=== PATIENT | male | born 1960 | race Caucasian/White ===

== ENCOUNTER → 2017-05-01 | Outpatient (CLI) | payer BC ==
[~2017-05-01] MED LIST: ASPI325T4 PO; EFFSR150 PO; HYDR-5688 PO
== END | disposition home or self-care (01) ==
LOC: C.RDSM 13:15
PROVIDERS: ATTEND Physical Medicine & Rehabilitation Sports Medicine
DX: M79.672 Pain in left foot (principal)

== ENCOUNTER → 2017-05-11 | Outpatient (CLI) | payer BC ==
--- NOTE | 2017-05-11 14:10 | DIAGNOSTIC IMAGING REPORT ---
MRI OF THE LEFT FOREFOOT WITHOUT IV CONTRAST: CLINICAL HISTORY: Toe lesion. COMPARISON STUDY: Radiographs of the left first toe dated 05/01/2017. TECHNIQUE: MRI of the left forefoot is performed utilizing various T1 and T2-weighted sequences in the axial, sagittal, and coronal planes. IV contrast was not administered for this examination. FINDINGS: There is minimal arthritic change seen at the first tarsometatarsal joint. Normal marrow signal intensity is otherwise preserved throughout the regional bony structures. There is no MRI evidence of fracture or osteonecrosis in the forefoot. The joint spaces appear preserved. The regional musculature is normal in morphology and signal intensity. There is a multiloculated T1 hypointense, T2 hyperintense cystic lesion identified predominantly along the dorsal aspect of the first proximal phalanx. This measures 2.4 x 1.3 x 1.3 cm. A small loculation extends along the underside of the toe, and this may communicate with the first interphalangeal joint. The appearance is most typical for a ganglion cyst. There is no significant surrounding inflammation. There are least two additional similar-appearing lesions. A 2.1 cm lesion is identified on the plantar aspect of the first metatarsal around the flexor tendon as seen on sagittal image 7, and a lesion is partially visualized in the distal tarsal row at the level of the first and second toes measuring at least 11 mm. IMPRESSION: 1. No acute bony abnormality is identified in the left forefoot. 2. A multiloculated simple appearing cystic lesion located predominantly along the dorsal aspect of the first proximal phalanx is typical in appearance for a ganglion cyst. 3. At least two additional similar-appearing ganglion cysts are identified around a flexor tendon along the plantar aspect of the first metatarsal and in the distal tarsal row. Dictated: 05/11/2017 12:07 PM Transcribed: 05/11/2017 2:09 PM Rene Electronically signed by: Jeet Singh M.D. 05/11/2017 2:16 PM Dictated Date/Time: 05/11/2017 12:07 PM
== END | disposition home or self-care (01) ==
LOC: C.MRI 10:22
PROVIDERS: ATTEND Physical Medicine & Rehabilitation Sports Medicine
DX: M79.89 Other specified soft tissue disorders (principal); M54.16 Radiculopathy, lumbar region; M67.472 Ganglion, left ankle and foot

== ENCOUNTER → 2017-06-11 | Day surgery (SDC) | payer BC ==
[2017-05-21 10:36] VITALS: Ht 177.8 cm; Wt 100.0 kg
[~2017-06-11] VITALS: Ht 177.8 cm; Wt 100.0 kg
[~2017-06-11] MED LIST changes: -ASPI325T4 PO; +ATROPINE SULFATE 0.1 MG/ML 5ML SYR IV PRN; +BUPIVACAINE 0.5 % 5 MG/1 ML MPF 30ML VIAL ONE; +BUPIVACAINE/EPINEPHRINE 0.5% MPF 1:200,000 10 ML VIAL ONE; +CEFAZOLIN 2000 MG/60 ML D5W IV SCH; +DEXAMETHASONE SOD INJ 4 MG/ML VIAL ONE; +EpHEDrine SULFATE 50MG/5ML SYR ONE; +EpHEDrine SULFATE INJ 50 MG/ML AMP IV PRN; +FENTANYL CITRATE INJ 50 MCG/1 ML 2 ML VIAL IV PRN; +FENTANYL CITRATE INJ 50 MCG/1 ML 2 ML VIAL ONE; +HYDROCODONE/ACETAMOPHEN 5/325MG TAB PO PRN; +LACTATED RINGER'S 1000ML 1,000 ML IV SCH; +LIDOCAINE HCL 2% 2 ML VIAL (20MG/ML) ONE; +MIDAZOLAM HCL 1 MG/ML 2ML VIAL ONE; +MoRPHine SULFATE 2 MG/ML CARP IV PRN; +MoRPHine SULFATE 4 MG/ML 1 ML CARP\\VIAL IV PRN; +ONDANSETRON INJ 2 MG/ML 2 ML VIAL IV PRN; +ONDANSETRON INJ 2 MG/ML 2 ML VIAL ONE; +PROMETHAZINE HCL INJ 6.25 MG in SODIUM CHLORIDE 0.9% 50ML 50 ML IV PRN; +PROPOFOL IV EMULSION 10 MG/ML 20 ML VIAL IV ONE; +SODIUM CHLORIDE 0.9% 1000ML 1,000 ML IV SCH; +SODIUM CHLORIDE 0.9% INJ 10 ML VIAL ONE
--- NOTE | 2017-06-11 06:46 | History & Physical Bridge Note ---
H&P Re-Evaluation Bridge Note: I have examined the patient, reviewed the History & Physical and in the interval since the performance of the History & Physical I have noted the following changes of clinical significance: No changes noted
--- NOTE | 2017-06-11 08:35 | Discharge Instructions-SurgCtr ---
Discharge Instructions Date of Service Jun 11, 2017. Visit Reason for Visit: Left Foot Ganglion Cyst Discharge Discharge Diagnosis / Problem: left foot ganglion cyst Discharge Goals Goal(s): Decrease discomfort, Improve function, Improve disease control Activity Recommendations Activity Limitations: per Instructions/Follow-up section Weightbearing Status: Left weightbearing (as tolerated) Anesthesia . Post Anesthesia Instructions: If you have had General Anesthesia or IV Sedation: * Do not drive today. * Resume driving when surgeon permits. * Do not make important decisions or sign legal documents today. * Call surgeon for: 1. Temperature elevations greater than 101 degrees F. 2. Uncontrollable pain. 3. Excessive bleeding. 4. Persistent nausea and vomiting. 5. Medication intolerance (nausea, vomiting or rash). * For nausea and vomiting use only clear liquids such as: tea, soda, bouillon until nausea subsides, then gradually increase diet as tolerated. * If you have any concerns or questions, call your surgeon's office. If physician is unavailable and it is an emergency, call 911 or go to the nearest emergency room. . Instructions / Follow-Up Instructions / Follow-Up DIET: * Resume previous diet. MEDICATIONS: * Please take your prescriptions as instructed at your pre-op appointment and/ or see medication discharge instructions listed above. * If concerns develop, call your physician's office at . SPECIAL CARE INSTRUCTIONS: * Ice to left foot as needed for pain/swelling. * Elevate left foot as needed for swelling * Keep dressing clean, dry, intact. Keep on at all times. * Wear post op shoe when out of bed. * Okay to wiggle toes as tolerated. * You may place weight on your left foot as tolerated with post op shoe on left foot. * Your surgical extremity may be discolored due to prepping agents used on the skin. A bluish-green tint is a normal variant and should not cause alarm. Call your doctor at [phone] if: * Temperature above 101 degrees * Pain not relieved by pain medicine ordered * There is increased drainage or redness from any incision * You have any unanswered questions, problems or concerns. FOLLOW UP VISIT: * If not already scheduled, please call the office at to schedule a follow-up appointment. * You have a follow up appointment with Kiley Falcon PA-C on 06/15/17 at 10:00 a.m. * You have a follow up appointment with Dr. Benson on 06/24/17 at 12:00 p.m. Diet Recommendations Home Diet: no limitations, resume previous diet Procedures Procedures Performed: Excision of Left great toe ganglion cyst Pending Studies Studies pending at discharge: no Medical Emergencies . Who to Call and When: Medical Emergencies: If at any time you feel your situation is an emergency, please call 911 immediately. . Non-Emergent Contact Non-Emergency issues call your: Surgeon Call Non-Emergent contact if: temperature is above 101, wound has increased drainage, wound has increased redness, wound has increased pain, you have any medication questions . . "Provider Documentation" section prepared by Spring Falcon. . [place] Drug Monitoring Program Search Results: patient reviewed within database, no issues identified
--- NOTE | 2017-06-11 08:38 | [facility] Operative Report ---
Operative Report Operative Date Jun 11, 2017. Pre-Operative Diagnosis Left foot ganglion cyst Post-Operative Diagnosis same as preop Procedure(s) Performed Excision of Left great toe ganglion cyst Surgeon Dr. Delacruz Testing Engineer Surgeon(s) LIANA Lomax, simi wynn Estimated Blood Loss 5ml Findings Ganglion cyst of the right great toe Specimens A: ganglion cyst, left great toe Drains none Anesthesia laryngeal mask with popliteal block Complication(s) None Disposition Recovery Room / PACU Implants None Indications Patient's a 57-year-old male with a symptomatic ganglion cyst of the left great toe. This is confirmed clinically by prior history and MRI. The cyst appears to be predominately on the dorsal aspect may have a communication to the flexor sheath plantarly. Treatment options risks and benefits were discussed. He elected to proceed with surgical excision. I personally obtained informed consent. Description of Procedure Patient identified as Axel Gtuiérrez. He identified the operative site as the left big toe. I marked with my initials. Preoperative surgical timeout was performed. Preoperative dose of antibiotics was given. DVT prophylaxis was not indicated and we'll order will be done with early mobility. He was positioned supine on the operating room table tourniquet was applied to fingerbreadths distal to the fibular neck on the left calf. The left lower extremity is prepped and draped in the usual sterile fashion. The cyst was 2-3 cm along and 1-1/2 cm wide located on the dorsal lateral aspect of the proximal phalanx left great toe. A laryngeal mask anesthetic and a popliteal block were house calls nurse practitioner by the anesthesiologist. The limb was exsanguinated with the Esmarch tourniquet inflated 250 mmHg. A dorsal longitudinal incision was made just lateral to midline. This incision was about 3 status to 4 cm in length. Immediately upon incising the dermal layer the cyst was identified. The cyst was dissected out laterally and medially. Laterally there were fairly dense adhesions to the skin which were carefully dissected out. The cyst was complex. There were septations. The cyst was adherent to the extensor hallucis longus tendon but was easily dissected from it. No satellites were noted. Careful dissection was performed distally and laterally due to the adhesions. Some small vessels were identified and coagulated. It is possible that there were some small nerve branches which may have become intertwined within the cyst and were sacrificed during the procedure. The cyst was ruptured during the procedure and was controlled with an Allis clamp. The cyst was dissected plantar lead towards the midline. Blunt dissection was utilized clearing away the normal structures from the cyst. At this time the plantar lateral neurovascular structures were identified and carefully dissected out and preserved. The cyst was noted to course more plantar to the neurovascular structures. The cyst was amputated dorsally leaving the stock plantarly. I then made a oblique incision overlying the proximal phalanx on its plantar aspect. Localization was performed by placing a [place] through the dorsal wound to the level where the stalk was located. Blunt dissection was performed in the midline and down to the level of the flexor tendon sheath. The remnant of the stock was then identified as best as possible and dissected down to the plantar lateral aspect of the flexor sheath where it was excised with a small 3- 4 mm diameter area of flexor sheath. The flexor sheath itself was not compromised in order to prevent bowstringing. No satellite lesions were noted. No cysts were noted along the visualized several centimeter portion of the flexor sheath. The tendon itself appeared to be normal and was identified by movement of the interphalangeal joint of the toe. The neurovascular bundle laterally was identified preserved and protected. The tourniquet was let down after approximate 40 minutes of inflation. There was no significant bleeding. Irrigation was performed. The toe pinked up nicely and had capillary refill 2-3 seconds. Leading was controlled with pressure. The skin was closed with 4-0 nylon using interrupted horizontal mattress stitches a soft sterile dressing was applied along with a toe wrap and a postop shoe. Patient was awakened from anesthesia without difficulty taken to the recovery room in stable condition. There were no complications. Blood loss was approximate 5 mL. The resected ganglion cyst was sent for specimen. Counts were correct at the end of the case. I spoke the patient's informed her my findings gave detailed postoperative instructions. He should be partial weightbearing with his postop shoe for the next several days. He can then weight-bear as tolerated but should focus on elevation and rest. I attest to the content of the Intraoperative Record and any orders documented therein. Any exceptions are noted below.
--- NOTE | 2017-06-11 08:40 | [facility] Operative Report ---
Operative Report Operative Date Jun 11, 2017. Pre-Operative Diagnosis Left foot ganglion cyst Post-Operative Diagnosis same as preop Procedure(s) Performed Excision of Left great toe ganglion cyst Surgeon Dr. Delacruz Horse Farm Manager Surgeon(s) Spring Falcon PA-C, Dr. Nagi Amado Estimated Blood Loss 5ml Findings ganglion cyst left big toe Specimens A: ganglion cyst, left great toe Drains None Anesthesia General with peripheral block Complication(s) None Disposition Recovery Room / PACU (stable) Indications Patient is a 57 year old male with complaints of cyst left foot, increasing in size over the last few months. Bothers him daily with shoes and ambulating. He wished to have it removed. X-rays/MRI obtained, found to have ganglion cyst left great toe. Surgical intervention discussed, risks/complications discussed , informed consent obtained. Description of Procedure Patient was taken to the operating room, placed under general anesthesia, given peripheral nerve block. He was given IV Ancef for surgical prophylaxis. Time out performed, prepped and draped in routine sterile fashion. I was present the entire case, please see Dr. Benson's operative report for further detail. Patient was awakened and taken to the recovery room in stable condition. I attest to the content of the Intraoperative Record and any orders documented therein. Any exceptions are noted below.
[2017-06-11 09:19] VITALS: BP 128/72; PULSE 65; TEMP 36.3; O2SAT 94
--- NOTE | 2017-06-11 09:59 | Anesthesiology Progress Note ---
Anesthesia Post Op Note Date & Time Jun 11, 2017 at 09:58 Vital Signs Pain Intensity: 0 Vital Signs Past 12 Hours Date Time Temp Pulse Resp B/P (MAP) Pulse Ox O2 Delivery O2 Flow Rate FiO2 06/11/17 09:19 36.3 65 128/72 (90) 94 Room Air 06/11/17 09:10 36.4 76 16 123/76 98 Room Air 06/11/17 09:06 74 14 132/84 100 06/11/17 09:06 72 14 06/11/17 09:06 72 14 06/11/17 09:06 74 14 132/84 100 06/11/17 09:01 71 13 06/11/17 09:01 72 13 118/73 92 06/11/17 09:01 72 13 118/73 92 06/11/17 09:01 71 13 06/11/17 08:56 75 17 06/11/17 08:56 75 17 06/11/17 08:56 75 17 132/76 95 06/11/17 08:56 75 17 132/76 95 06/11/17 08:51 75 16 06/11/17 08:51 77 16 130/76 95 06/11/17 08:51 75 16 06/11/17 08:51 77 16 130/76 95 06/11/17 08:46 64 17 06/11/17 08:46 64 17 130/71 98 06/11/17 08:46 64 17 130/71 98 06/11/17 08:46 64 17 06/11/17 08:41 64 16 06/11/17 08:41 64 16 06/11/17 08:41 62 16 127/75 99 06/11/17 08:41 62 16 127/75 99 06/11/17 08:36 62 17 06/11/17 08:36 61 17 136/73 99 06/11/17 08:36 62 17 06/11/17 08:36 61 17 136/73 99 06/11/17 08:35 63 17 99 06/11/17 08:35 64 17 06/11/17 08:31 119/72 06/11/17 08:30 77 06/11/17 08:30 77 131/74 97 06/11/17 08:29 36.4 72 16 131/74 94 Mask 5 06/11/17 07:05 18 06/11/17 07:04 65 18 97 06/11/17 07:04 65 06/11/17 07:03 64 06/11/17 07:03 65 13 97 06/11/17 07:02 104/67 06/11/17 07:00 61 06/11/17 07:00 61 22 94 06/11/17 06:59 132/84 06/11/17 06:58 61 06/11/17 06:58 60 95 06/11/17 06:53 61 06/11/17 06:48 58 06/11/17 06:26 36.9 64 18 134/75 (94) 97 Room Air Notes Mental Status: alert / awake / arousable, participated in evaluation Pt Amnestic to Procedure: Yes Nausea / Vomiting: adequately controlled Pain: adequately controlled Airway Patency, RR, SpO2: stable & adequate BP & HR: stable & adequate Hydration State: stable & adequate Anesthetic Complications: no major complications apparent Block working well in pacu
== END | disposition home or self-care (01) ==
LOC: X.SURG 06:17
PROVIDERS: ATTEND Physical Medicine & Rehabilitation Sports Medicine
DX: M67.472 Ganglion, left ankle and foot (principal); M19.90 Unspecified osteoarthritis, unspecified site; F41.9 Anxiety disorder, unspecified; M48.02 Spinal stenosis, cervical region; Z98.52 Vasectomy status; Z86.79 Personal history of other diseases of the circulatory system

== ENCOUNTER 2019-06-10 06:21 | Inpatient (IN) ==
--- NOTE | 2019-05-02 09:46 | PAT Medication Instructions ---
Medication Instructions Date of Service May 02, 2019 Home Medications venlafaxine [Effexor XR] 150 mg PO QAM Take morning of surgery With a small sip of water, OTHERWISE NOTHING TO EAT OR DRINK AFTER MIDNIGHT: venlafaxine [Effexor XR] 150 mg PO QAM Other Notes If you have any questions please call us at [phone] or [phone] or [phone] or [phone]
--- NOTE | 2019-05-02 09:58 | Anesthesiology Consultation ---
Date of Service May 02, 2019 Assessment & Plan (1) Encounter for pre-operative examination: Chart Review Chart Review: Acceptable Risk for Surgery and Patient seen in Pre Admission Testing Teaching & Discussion Instructed NPO after midnight before surgery, except medications with 15 cc of water. Medication instructions provided according to the PAT guidelines. History Surgery Operation Date: 06/10/19 08:50 Proposed Procedures p Left Total Knee Replacement - Julián Whitlock MD Height/Weight Height: 5 ft 10 in Weight: 100.8 kg Allergies Allergy/AdvReac Type Severity Reaction Status Date / Time Sulfa (Sulfonamide Allergy Unknown RASH Verified 04/26/19 08:03 Antibiotics) Medications Home Medications Medication Instructions Recorded Confirmed Last Taken venlafaxine [Effexor XR] 150 mg PO QAM 04/26/19 04/26/19 Unknown Past Medical History Medical History Anxiety Atrial fibrillation HX 19 YRS AGO-ONLY EPISODE NO MEDS Depression Obesity Osteoarthritis Snoring Remote h/o sleep study, pt reports was inconclusive. Spinal stenosis of cervical region NO SURGERY Exercise / Class Metabolic Activity II 4-5 Yardwork/Stairs/Walk up hill (Denies CP or SOB with 1 FOS, does daily) Past Surgical History Surgical History H/O arthroscopy of knee H/O lumbosacral spine surgery spinal cyst removed H/O vasectomy History of cardiac cath 19 YRS AGO NO STENTS[facility] [place] History of colonoscopy History of herniorrhaphy Past Anesthesia History No Hx of Anesthesia Complications and No Family Hx of Anesthesia Complications History of PONV No Hx of PONV and No Hx of Motion Sickness Social History Smoking Status: Never smoker Do You Dip or Chew Tobacco: No (QUIT 20+ YRS AGO) Hx Alcohol Use: Yes Alcohol type: beer alcohol intake frequency: 0-2 drinks per day (1-2/day) Hx Substance Use: No substance use type: does not use Review of Systems Pt denies any recent chest pain, shortness of breath, palpitations, cough, fever or URI. Physical Exam Vital Signs BP: 138/84 P: 60bpm SPO2: 95% RA T: 97.7 F R: 12 ENMT Mouth: no dental restorations, no chipped teeth and no loose teeth Thyromental Distance: > or= 3.5 Finger Breadths (3.5) Mallampati Class: I Neck normal visual inspection and + facial hair (short trimmed yusuf); neck extension not limited Respiratory normal respiratory effort Auscultation: lungs clear to auscultation bilaterally Cardiovascular Rate/Rhythm: regular rate and regular rhythm Heart Sounds: no murmur Vessels: no carotid bruit Extremities: no edema Testing Laboratory Results 05/02/19 10:09 05/02/19 10:09 05/02/19 05/02/19 10:09 10:09 PT 10.1 INR 1.0 APTT 28.8 Blood Type AB Negative Antibody Screen NEGATIVE Electrocardiogram Date: 05/02/19 Findings: + SB @ (56) No significant change from 05/19/16. Chest X-Ray Date: 05/02/19 Findings: + NAD
--- NOTE | 2019-05-02 10:32 | XRay Report ---
XR chest Pre-admission PA/Lat CLINICAL HISTORY: 59 years-old Male presenting with pre-operative evaluation. TECHNIQUE: PA and lateral views of the chest were obtained. COMPARISON: 03/20/2015. FINDINGS: Cardiomediastinal silhouette normal. Lungs and pleural spaces clear. Degenerative changes of the thor acic spine. Upper abdomen normal. IMPRESSION: 1. No acute cardiopulmonary disease. Electronically signed by: Adria Nicholas M.D. 05/02/2019 10:30 AM
[2019-05-02 11:42] LABS: Basophils # (auto) 0.04 K/uL (0-0.2); Basophils % (auto) 0.6 %; Hematocrit (blood only) 41.4 % (42-52); Hemoglobin 14.9 g/dL (14.0-18.0); Immature Granulocytes # (auto) 0.02 K/uL (0.00-0.02); Immature Granulocytes % (auto) 0.3 %; Lymphocytes # (auto) 1.51 K/uL (1.2-3.4); Lymphocytes % (auto) 22.1 %; Mean Corpuscular Volume 83.8 fL (80-100); Mean Platelet Volume 9.5 fL (7.4-10.4); Monocytes # (auto) 0.57 K/uL (0.11-0.59); Monocytes % (auto) 8.3 %; Neutrophils # (auto) 4.69 K/uL (1.4-6.5); Neutrophils % (auto) 68.7 %; Platelet Count 212 K/uL (130-400); RDW Coefficient of Variation 13.4 % (11.5-14.5); RDW Standard Deviation 40.4 fL (36.4-46.3); Red Blood Count 4.94 M/uL (4.7-6.1); White Blood Count 6.83 K/uL (4.8-10.8)
[2019-05-02 11:52] LABS: Partial Thromboplastin Ratio 1.1; Partial Thromboplastin Time 28.8 Seconds (21.0-31.0); Prothrombin Time 10.1 Seconds (9.0-12.0)
[2019-05-02 12:27] LABS: Calcium 8.8 mg/dl (8.5-10.1); Creatinine Clr Calc Pharmacy 110.2 ml/min; Est GFR (African American) 110.5; Est GFR (Non-African American) 95.4; Potassium 4.3 mmol/L (3.5-5.1)
--- NOTE | 2019-06-03 21:12 | History and Physical Report ---
DATE OF ADMISSION: 06/10/2019 CHIEF COMPLAINT: Left knee pain and discomfort. HISTORY OF PRESENT ILLNESS: A 59-year-old gentleman who presents for surgical treatment of his left knee. He has a 3+ year history of increasing left knee pain and discomfort that has gradually gotten worse over time. He used to be an avid runner and ran marathons, but has not been able to run for years. He has been treated by Dr. Benson in the past, had his left knee scoped about 4 years or so ago and then some intermittent aspirations and injections since then, which have not been very successful. He describes global pain in his knee. He describes stiffness and discomfort. He has good and bad days, but more and more bad days. He would like to proceed with surgical treatment. PAST MEDICAL HISTORY: Significant for: 1. Atrial fibrillation in his 30s, but off all medicines and apparently in sinus rhythm. 2. Anxiety, on Effexor. 3. Mild obesity with BMI of 32. 4. Low back pain. PAST SURGICAL HISTORY: Includes: 1. Vasectomy. 2. Umbilical hernia repair. 3. Cyst removal from the spine. 4. Left knee arthroscopy done by Dr. Benson 4 years ago. ALLERGIES: SULFA. CURRENT MEDICATIONS: Effexor 150 mg a day. SOCIAL HISTORY: A 59-year-old male. He is . One drink per day. Chews tobacco. FAMILY HISTORY: Significant for heart disease and prostate cancer. REVIEW OF HISTORY: Negative for diabetes, neurologic problems, vascular problems, bleeding disorders. No chest pain or shortness of breath. No history of DVT or PE. PHYSICAL EXAMINATION: GENERAL: Reveals a healthy, pleasant middle-aged male. Looks to be in good health. HEENT: Benign. NECK: Supple, no lymphadenopathy. LUNGS: Clear to auscultation. HEART: Regular rate and rhythm. ABDOMEN: Soft, nontender, nondistended. EXTREMITIES: Grossly neurovascularly intact except as follows: Examination of left knee reveals patient ambulates independently. He does limp a little bit on this left side. He has got a small knee effusion. He has got varus alignment to his knee. With weightbearing, he does have a varus thrust. There is no gross instability. Range of motion is 5 degrees short of full extension to 125 degrees of flexion. No pain with hip motion. X-RAYS: X-rays of the left knee were reviewed. It shows advanced left knee tricompartment DJD. He has got a little bit of tibial femoral subluxation, but he has got complete loss of his medial joint space on the 40-degree flexion films. ASSESSMENT: A 59-year-old white male, previous runner with advanced left knee tricompartment degenerative joint disease. He has a history of knee arthroscopy in the past with minimal relief. He has failed conservative treatment and would like to have his left knee replaced. PLAN: We will take him to the operating room and do a left total knee replacement. The risks and benefits of this procedure were explained to the patient and include but not limited to DVT, PE, , infection, neurological injury, vascular injury, bleeding problem, pain, limited range of motion, stiffness, failure to relieve symptoms, incomplete relief of symptoms, need for further surgery in the future, fracture, leg length inequality, nerve palsy, and need for revision surgery. The patient understands and desires to proceed. Informed consent was obtained. As far as discharge plans, he is planning to be discharged to home using the [facility] home health program.
[~2019-06-10 06:21] MED LIST changes: +ACETAMINOPHEN 500 MG TAB PO SCH; -ATROPINE SULFATE 0.1 MG/ML 5ML SYR IV PRN; -BUPIVACAINE 0.5 % 5 MG/1 ML MPF 30ML VIAL ONE; +BUPIVACAINE LIPOSOME/PF 266 MG, BUPIVACAINE/EPINEPHRINE 50 ML, SODIUM CHLORIDE 0.9% 30 ... INFIL SCH; -BUPIVACAINE/EPINEPHRINE 0.5% MPF 1:200,000 10 ML VIAL ONE; -CEFAZOLIN 2000 MG/60 ML D5W IV SCH; +CEFAZOLIN 2000MG 2,000 MG/15 ML SYR IV SCH; -DEXAMETHASONE SOD INJ 4 MG/ML VIAL ONE; -EFFSR150 PO; -EpHEDrine SULFATE 50MG/5ML SYR ONE; -EpHEDrine SULFATE INJ 50 MG/ML AMP IV PRN; +FAMOTIDINE 20 MG TAB PO SCH; -FENTANYL CITRATE INJ 50 MCG/1 ML 2 ML VIAL IV PRN; -FENTANYL CITRATE INJ 50 MCG/1 ML 2 ML VIAL ONE; +GABAPENTIN 300 MG CAP PO SCH; -HYDR-5688 PO; -HYDROCODONE/ACETAMOPHEN 5/325MG TAB PO PRN; -LACTATED RINGER'S 1000ML 1,000 ML IV SCH; -LIDOCAINE HCL 2% 2 ML VIAL (20MG/ML) ONE; +LR 500ML BOLUS, THEN 15ML/HR IV SCH; +LR 60ML/HR IV SCH; +METOCLOPRAMIDE HCL 10 MG TABLET PO SCH; -MIDAZOLAM HCL 1 MG/ML 2ML VIAL ONE; -MoRPHine SULFATE 2 MG/ML CARP IV PRN; -MoRPHine SULFATE 4 MG/ML 1 ML CARP\\VIAL IV PRN; -ONDANSETRON INJ 2 MG/ML 2 ML VIAL IV PRN; -ONDANSETRON INJ 2 MG/ML 2 ML VIAL ONE; -PROMETHAZINE HCL INJ 6.25 MG in SODIUM CHLORIDE 0.9% 50ML 50 ML IV PRN; -PROPOFOL IV EMULSION 10 MG/ML 20 ML VIAL IV ONE; +SCOPOLAMINE 1.5 MG TDSY TD SCH; -SODIUM CHLORIDE 0.9% 1000ML 1,000 ML IV SCH; -SODIUM CHLORIDE 0.9% INJ 10 ML VIAL ONE
--- NOTE | 2019-06-10 06:50 | History & Physical Bridge Note ---
Date of Service June 10, 2019 History & Physical Bridge Note I have examined the patient, reviewed the History & Physical and in the interval since the performance of the History & Physical I have noted the following changes of clinical significance: no changes noted
[2019-06-10] MEDS ORDERED: BUPIVACAINE 0.5 % 5 MG/1 ML PF 10ML VIAL ONE (07:13)
[2019-06-10] MEDS ORDERED: EPINEPHrine INJ 1 MG/ML AMP ONE ×2 (07:13→07:55)
[2019-06-10] MEDS ORDERED: ROPIVACAINE 0.5% 5 MG/ML 30 ML VIAL ONE (07:13)
[2019-06-10] MEDS ORDERED: MIDAZOLAM HCL 1 MG/ML 2ML VIAL ONE ×2 (07:35)
[2019-06-10] MEDS ORDERED: fentaNYL citrate 100 MCG/2 ML VIAL ONE (07:35)
[2019-06-10] MEDS ORDERED: TRANEXAMIC ACID 1,000 MG in 0.9 % SODIUM CHLORIDE 100 ML IV ONE (07:43)
[2019-06-10] MEDS ORDERED: SODIUM CHLORIDE 0.9% PF 50 ML VIAL ONE (07:53)
[2019-06-10] MEDS ORDERED: BUPIVACAINE LIPOSOME 1.3% 266 MG/20 ML VIAL ONE (07:54)
[2019-06-10] MEDS ORDERED: BACITRACIN INJ 50,000 UNIT VIAL ONE (07:54)
[2019-06-10] MEDS ORDERED: BUPIVACAINE 0.25% 30 ML VIAL ONE (07:55)
[2019-06-10] MEDS ORDERED: LIDOCAINE HCL 2% 2 ML VIAL/AMP(20MG/ML) INFIL ONE (09:27)
[2019-06-10] MEDS ORDERED: ONDANSETRON INJ 2 MG/ML 2 ML VIAL ONE (10:00)
[2019-06-10] MEDS ORDERED: PROPOFOL IV EMULSION 10 MG/ML 20 ML VIAL IV ONE (10:00)
[2019-06-10] MEDS ORDERED: ePHEDrine sulfate 50 MG/ML AMP IV PRN (10:19)
[2019-06-10] MEDS ORDERED: PROMETHAZINE HCL 12.5 MG in SODIUM CHLORIDE 0.9% 50 ML IV PRN (10:19)
[2019-06-10] MEDS ORDERED: ONDANSETRON INJ 2 MG/ML 2 ML VIAL IV PRN ×2 (10:19→11:40)
[2019-06-10] MEDS ORDERED: FLUMAZENIL 0.1 MG/1 ML 10 ML VIAL IV PRN (10:19)
[2019-06-10] MEDS ORDERED: HYDROmorphone INJ 1 MG/ML SYRINGE IV PRN (10:19)
[2019-06-10] MEDS ORDERED: NALOXONE HCL 0.4 MG/1 ML VIAL/CARP IV PRN ×2 (10:19→11:40)
[2019-06-10] MEDS ORDERED: ATROPINE SULFATE 0.1 MG/ML 10ML SYR IV PRN (10:19)
--- NOTE | 2019-06-10 10:23 | Post Operative Brief Note ---
Immediate Post Op Note v1 Date of Surgery June 10, 2019 Pre & Post Diagnosis Operation Date: 06/10/19 08:35 Pre-Op Diagnosis: Left Knee Degenerative Joint Disease Post-Op Diagnosis: Left Knee Degenerative Joint Disease Procedure Operation Date: 06/10/19 08:35 Actual Procedures p Left Total Knee Replacement - Julián Whitlock MD Surgeon Julián Whitlock MD Market Development Executive Collette, PAC Estimated Blood Loss 50 Findings Consistent with Post-Op Diagnosis Fluids 1500 cc Specimens Left Knee Drains Simons Catheter Anesthesia Type Spinal MAC Complications none Disposition Accompanied Patient To Recovery: No Disposition: Recovery Room
--- NOTE | 2019-06-10 10:51 | XRay Report ---
XR knee LT 2V routine CLINICAL HISTORY: Surgical Post Op COMPARISON: Left knee radiographs May 07, 2016. FINDINGS: Alignment of the total left knee arthroplasty is anatomic. No fracture or unexpected radio paque foreign body. There are skin paramjit. IMPRESSION: Expected findings following total left knee arthroplasty. Electronically signed by: Miguelito Eason M.D. 06/10/2019 10:50 AM
--- NOTE | 2019-06-10 11:10 | Anesthesiology Progress Note ---
Date of Service June 10, 2019 Anesthesia Post Procedure Vital Signs Vital Signs: Temp Pulse Pulse Resp BP Pulse Ox 06/10/19 11:00 59 L 16 105/63 96 06/10/19 10:50 62 14 95/62 L 98 06/10/19 10:40 54 L 16 104/58 L 99 06/10/19 10:32 36.4 C L 70 16 101/48 L 95 06/10/19 06:53 37.6 C H 63 18 146/90 H Transfer of Care Handoff Completed per policy Notes Mental Status: alert / awake / arousable Patient Amnestic to Procedure: Yes Nausea / Vomiting: adequately controlled Pain: adequately controlled Airway Patency, RR, SpO2: stable & adequate BP & HR: stable & adequate Hydration State: stable & adequate Neuraxial Anesthesia: was administered and sensory block is resolving Anesthetic Complications: no major complications apparent
[2019-06-10] MEDS ORDERED: TAMSULOSIN HCL 0.4 MG CAP PO PRN (11:40)
[2019-06-10] MEDS ORDERED: MAGNESIUM HYDROXIDE SUSP 30 ML UDC PO PRN (11:40)
[2019-06-10] MEDS ORDERED: METOCLOPRAMIDE HCL INJ 5 MG/ML 2 ML VIAL IV PRN (11:40)
[2019-06-10] MEDS ORDERED: ALUMINUM/MAGNESIUM SUSP 30 ML UDC PO PRN (11:40)
[2019-06-10] MEDS ORDERED: HYDROmorphone INJ 0.5 MG/0.5 ML SYR IV PRN (11:40)
[2019-06-10] MEDS ORDERED: BISACODYL 10 MG SUPP PR PRN (11:40)
[2019-06-10] MEDS: SODIUM CHLORIDE 0.9% 1000ML 1,000 ML IV SCH ×2 (12:04→19:17)
[2019-06-10] MEDS: KETOROLAC 30 MG/ML VIAL IV SCH ×2 (12:48→17:44)
--- NOTE | 2019-06-10 13:34 | Operative Report ---
DATE OF OPERATION: 06/10/2019 SURGEON: Julián Whitlock MD LOGGING CREW SUPERVISOR: JOSEP Mota PREOPERATIVE DIAGNOSIS: Left knee degenerative joint disease. POSTOPERATIVE DIAGNOSIS: Left knee degenerative joint disease. PROCEDURE PERFORMED: Left cemented posterior stabilized total knee arthroplasty. COMPLICATIONS: None. ESTIMATED BLOOD LOSS: 50 mL. FLUID REPLACEMENT: 1500 mL crystalloid fluid replacement. TOURNIQUET TIME: 60 minutes at 300 mmHg. ANESTHESIA: Spinal with adductor canal block. DRAINS: None. SPECIMENS: Left knee sent for pathology. OPERATIVE INDICATIONS: The patient is a 59-year-old gentleman who has had a long history of left knee problems. He underwent a left knee arthroscopy done elsewhere several years ago which provided minimal relief. Over the years, he developed increased pain and discomfort in his left knee. He has been through extensive conservative treatment. He elected to proceed with total knee arthroplasty. OPERATIVE FINDINGS: Operative findings revealed advanced left knee DJD. Extensive grade 4 changes of the medial and patellofemoral compartments and some spotty grade 4 changes laterally. He had a knee joint effusion. He had a 10-degree flexion contracture. OPERATIVE IMPLANTS: Operative implants consisted of: 1. A Biomet Vanguard size 70 left posterior stabilized femoral component. 2. A Biomet size 79 tibial tray. 3. A 10 mm posterior stabilized polyethylene insert. 4. A 34 x 8.5 all poly patella. OPERATIVE PROCEDURE: The patient was taken to the operating room, identified and placed on the operating table in supine position. All contact areas were appropriately padded. IV antibiotics provided by anesthesia team. Spinal anesthetic and adductor canal block had been provided in the holding area. Simons catheter was placed in sterile fashion. Left thigh tourniquet was then placed and the left lower extremity was then prepped and draped in usual sterile fashion. Left leg was elevated and exsanguinated with an Esmarch and tourniquet was placed at 300 mmHg. An anterior approach to the left knee was then performed through a longitudinal incision centered over the patella. Sharp dissection was carried through subcutaneous tissues down to the level of the extensor mechanism. Medial parapatellar arthrotomy incision was made. Some subperiosteal dissection was carried out medially. The fat pad resected from beneath the patellar tendon. The lateral patellofemoral ligament was released. The patella was everted and knee was flexed. The osteophytes were taken off the distal femur. The ACL and PCL were released from distal femur and the tibia subluxated anteriorly. External tibial alignment jig was then placed in the anterior face of the tibia and adjusted 16 mm medially. Proximal tibial cut was made to remove about a millimeter of bone from the most deficient aspect of the medial tibial plateau. Some osteophytes were taken off medial and posteromedially. The tibia sized to a size 79. Attention was then drawn to the femur. The distal femur was entered with a sharp drill bit. Intramedullary canal was suctioned. A right 6-degree valgus cutting guide was placed. Distal femoral cutting block was pinned in place. Distal femoral cut was made to take an additional 3 mm of bone off distal femur. The femur was then sized to a size 70. We did downsize this slightly. The AP cutting block was pinned parallel to the epicondylar axis, which was 6 degrees of external rotation. The anterior cut, anterior chamfer, posterior cut, posterior chamfer cuts were made. Box cutting guide was placed and adjusted slightly lateral and the box cut was made. The knee was flexed. The remnants of medial and lateral menisci were excised. The osteophytes were taken off the posterior aspect of the femur. Trial femoral component was placed. Tibial tray was pinned in maximum external rotation and the drill and stem punch were used to create defect in proximal tibia for the tibial tray. The knee was then trialed and the 10 mm insert fit most appropriately. Attention was then drawn to the patella. The patella was cleaned of all soft tissues. Patella thickness measured 23 mm in thickness, it was cut down to 14. It was sized to a size 34 patella. Lugholes were drilled for 34 patella. Lateral osteophyte was removed. Patella button was placed. Knee was taken through range of motion, patella tracked nicely with no thumbs test. All trial components were removed. The wound was irrigated with extensive amounts of pulsatile lavage solution. A double batch of Palacos G cement was mixed. A left size 70 posterior stabilized femoral component, size 79 tibial tray, a 10 mm posterior stabilized polyethylene insert, and 34 x 8.5 all poly patella then cemented in place. Knee was brought down to full extension until cement hardened. A final cement check was then performed. Pericapsular tissues were injected with a total of 100 mL of combination of 20 mL of Exparel, 30 mL of normal saline, 50 mL 0.25% Marcaine with epinephrine. The patient did receive 1 gram of tranexamic acid. The tourniquet was then let down for final tourniquet time of 60 minutes. Hemostasis was assured with use of electrocautery. The wound was once again irrigated. The extensor mechanism was then closed with combination of #1 PDS suture and #1 Vicryl suture in a [id number] fashion. Extensor mechanism was checked and found to be intact. The subcutaneous tissues were then closed with #2 Dexon suture in a buried interrupted fashion. Skin was closed with skin paramjit. Leg was then cleaned, dried and a sterile dressing of Xeroform, 4 x 4, sterile cast padding and Alejandro bandage were applied. The patient then transferred to the recovery room in stable condition. The patient tolerated the procedure well with no complication. All needle and sponge counts were correct at the end of the operation. I attest to the content of the Intraoperative Record and any orders documented therein. Any exception s are noted below.
[2019-06-10] MEDS: ACETAMINOPHEN 500 MG TAB PO SCH ×2 (14:06→21:20)
[2019-06-10] MEDS: CHECK SCOPOLAMINE PATCH PLACEMENT SCH (15:42)
[2019-06-10] MEDS: OXYCODONE HCL IR 5 MG TAB (IMMEDIATE RELEASE) PO PRN (15:49)
[2019-06-10] MEDS ORDERED: TRANEXAMIC ACID 1,000 MG in 0.9 % SODIUM CHLORIDE 100 ML IV SCH (16:30)
[2019-06-10] MEDS: ASCORBIC ACID 500 MG TAB PO SCH (17:43)
[2019-06-10] MEDS: FERROUS GLUCONATE 324 MG TAB PO SCH (17:44)
[2019-06-10] MEDS: CEFAZOLIN 2000MG 2,000 MG/15 ML SYR IV SCH (17:49)
--- NOTE | 2019-06-10 19:25 | Progress Note ---
DATE: 06/10/2019 SUBJECTIVE: This patient is a 59-year-old gentleman postoperative from a left knee replacement. He is doing pretty well. He had a little bit of pain earlier, but took some pain pills and doing well. No chest pain or shortness of breath. Not feeling dizzy or lightheaded. OBJECTIVE: VITAL SIGNS: Temperature 36.6. Vital signs stable. PHYSICAL EXAMINATION: GENERAL: Shows a pleasant, middle-aged male. He is sitting up in her bedside chair eating dinner. He looks comfortable. LUNGS: Clear to auscultation. HEART: Has regular rate and rhythm. ABDOMEN: Soft, nontender and nondistended. EXTREMITIES: Grossly neurovascularly intact except as follows. Examination of the left lower extremity reveals the dressing to be clean, dry and intact. He can dorsiflex and plantarflex his foot appropriately. He is neurologically intact. X-RAYS: X-rays of the left knee from recovery room reviewed. It shows left cemented posterior stabilized total knee arthroplasty. Components looked to be in good position. No signs of problems. ASSESSMENT: This patient is a 59-year-old male postoperative from a left knee replacement, doing well. Pain is controlled. He is neurologically intact. PLAN: 1. Deep venous thrombosis prophylaxis including thigh-high thromboembolic deterrent stockings, sequential compression devices and aspirin twice a day. 2. Physical therapy/occupational therapy. Weight bear as tolerated. Left total knee protocol. 3. Pain control, doing well with current pain regimen. 4. I.V. antibiotics x24 hours. 5. Disposition: Plan to discharge to home with some home health once adequately recovered.
[2019-06-10] MEDS: DOCUSATE SODIUM 100 MG CAP PO SCH (21:19)
[2019-06-10] MEDS: ASPIRIN 81 MG ECTAB PO SCH (21:20)
[2019-06-10] MEDS: SENNA 8.6 MG TAB PO SCH (21:20)
[2019-06-10] MEDS: TAPENTADOL HCL ER 50 MG TABCR PO SCH (21:22)
[2019-06-11] MEDS: KETOROLAC 30 MG/ML VIAL IV SCH ×4 (00:31→17:46)
[2019-06-11] MEDS: CHECK SCOPOLAMINE PATCH PLACEMENT SCH (00:32)
[2019-06-11] MEDS: CEFAZOLIN 2000MG 2,000 MG/15 ML SYR IV SCH (00:53)
[2019-06-11] MEDS: OXYCODONE HCL IR 5 MG TAB (IMMEDIATE RELEASE) PO PRN ×3 (05:55→10:21)
[2019-06-11] MEDS: ACETAMINOPHEN 500 MG TAB PO SCH ×3 (05:55→21:52)
[2019-06-11 06:27] LABS: Hematocrit (blood only) 36.4 % (42-52); Hemoglobin 12.7 g/dL (14.0-18.0); Mean Corpuscular Hgb Conc 34.9 g/dL (32-36); Mean Corpuscular Volume 85.8 fL (80-100); Mean Platelet Volume 9.1 fL (7.4-10.4); Platelet Count 170 K/uL (130-400); RDW Coefficient of Variation 13.9 % (11.5-14.5); RDW Standard Deviation 43.2 fL (36.4-46.3); Red Blood Count 4.24 M/uL (4.7-6.1); White Blood Count 7.13 K/uL (4.8-10.8)
[2019-06-11 07:01] LABS: BUN Creatinine Ratio 12.4 (10-20); Calcium 8.1 mg/dl (8.5-10.1); Creatinine Clr Calc Pharmacy 111.6 ml/min; Est GFR (Non-African American) 95.8; Potassium 3.9 mmol/L (3.5-5.1)
--- NOTE | 2019-06-11 08:14 | Progress Note ---
DATE: 06/11/2019 SUBJECTIVE: A 59-year-old gentleman postop day #1 from a left knee replacement. He is doing well. Had a couple episodes of pain up to a 5, but the pain medicine seems to knock it get down and doing well. No chest pain or shortness of breath. Not feeling dizzy or lightheaded. OBJECTIVE: VITAL SIGNS: Temperature 36.5. Vital signs stable. GENERAL: Physical examination shows a pleasant, middle-aged male. He is sitting in a bedside chair, looks pretty comfortable. EXTREMITIES: Examination of the left leg reveals the dressing to be clean, dry and intact. He can dorsiflex and plantarflex his foot appropriately. He is neurologically intact. LABORATORY DATA: Hemoglobin is 12.7. Hematocrit 36.4. Electrolytes are stable. ASSESSMENT: A 59-year-old gentleman postoperative day #1 from left knee replacement, doing well. Pain is controlled. He is neurologically intact. PLAN: 1. DVT prophylaxis including thigh-high TEDs, SCDs and aspirin twice a day. 2. PT/OT. Weight bear as tolerated. Left total knee protocol. 3. Pain control, doing well with current pain regimen. 4. Disposition: He is planning to be discharged to home with some home health once adequately recovered.
[2019-06-11] MEDS: TAPENTADOL HCL ER 50 MG TABCR PO SCH ×2 (09:39→21:52)
[2019-06-11] MEDS: VENLAFAXINE HCL XR 150 MG CAPXR PO SCH (09:40)
[2019-06-11] MEDS: ASCORBIC ACID 500 MG TAB PO SCH ×2 (09:41→17:46)
[2019-06-11] MEDS: DOCUSATE SODIUM 100 MG CAP PO SCH ×2 (09:41→21:52)
[2019-06-11] MEDS: ASPIRIN 81 MG ECTAB PO SCH ×2 (09:41→21:52)
[2019-06-11] MEDS: MULTIVITAMIN TAB PO SCH (09:41)
[2019-06-11] MEDS: FERROUS GLUCONATE 324 MG TAB PO SCH ×2 (10:21→17:46)
--- NOTE | 2019-06-11 10:29 | Anesthesiology Progress Note ---
Date of Service June 11, 2019 Anesthesia Post Procedure Vital Signs Vital Signs: Temp Pulse Pulse Pulse Resp BP BP 06/11/19 07:34 36.6 C 66 16 109/71 06/11/19 03:12 36.5 C 63 14 134/82 06/10/19 23:14 36.6 C 65 14 124/80 06/10/19 19:33 36.4 C L 58 L 16 136/81 06/10/19 14:22 67 18 131/72 06/10/19 13:31 36.6 C 63 20 135/78 06/10/19 12:24 59 L 18 138/77 06/10/19 11:58 36.4 C L 60 20 102/78 06/10/19 11:30 36.4 C L 58 L 16 104/61 06/10/19 11:10 36.6 C 64 16 93/55 L 06/10/19 11:00 59 L 16 105/63 06/10/19 10:50 62 14 95/62 L 06/10/19 10:40 54 L 16 104/58 L 06/10/19 10:32 36.4 C L 70 16 101/48 L Pulse Ox 06/11/19 07:34 92 06/11/19 03:12 96 06/10/19 23:14 95 06/10/19 19:33 98 06/10/19 14:22 98 06/10/19 13:31 98 06/10/19 12:24 98 06/10/19 11:58 96 06/10/19 11:30 98 06/10/19 11:10 96 06/10/19 11:00 96 06/10/19 10:50 98 06/10/19 10:40 99 06/10/19 10:32 95 Pain Intensity Left Knee: Pain Intensity: 5 Transfer of Care Handoff Completed per policy Notes Mental Status: alert / awake / arousable and participated in evaluation Patient Amnestic to Procedure: Yes Nausea / Vomiting: adequately controlled Pain: adequately controlled Airway Patency, RR, SpO2: stable & adequate BP & HR: stable & adequate Hydration State: stable & adequate Anesthetic Complications: no major complications apparent
[2019-06-11] MEDS: SENNA 8.6 MG TAB PO SCH (21:51)
[2019-06-12] MEDS: KETOROLAC 30 MG/ML VIAL IV SCH ×2 (00:50→05:29)
[2019-06-12] MEDS: ACETAMINOPHEN 500 MG TAB PO SCH (05:28)
[2019-06-12] MEDS: FERROUS GLUCONATE 324 MG TAB PO SCH (08:58)
[2019-06-12] MEDS: ASCORBIC ACID 500 MG TAB PO SCH (08:58)
[2019-06-12] MEDS: MULTIVITAMIN TAB PO SCH (08:58)
[2019-06-12] MEDS: VENLAFAXINE HCL XR 150 MG CAPXR PO SCH (08:58)
[2019-06-12] MEDS: TAPENTADOL HCL ER 50 MG TABCR PO SCH (08:58)
[2019-06-12] MEDS: DOCUSATE SODIUM 100 MG CAP PO SCH (08:58)
[2019-06-12] MEDS: ASPIRIN 81 MG ECTAB PO SCH (08:59)
--- NOTE | 2019-06-12 09:32 | Progress Note ---
DATE: 06/12/2019 SUBJECTIVE: A 59-year-old gentleman postop day #2 from a left knee replacement. He is doing pretty well. Pain has been a little bit less than expected. No chest pain or shortness of breath. Not feeling dizzy or lightheaded. OBJECTIVE: VITAL SIGNS: Temperature 36.7. Vital signs stable. PHYSICAL EXAMINATION: GENERAL: Physical examination shows a pleasant, middle-aged male. He is lying in bed, looks comfortable. EXTREMITIES: Examination of the left leg reveals the dressing to be clean, dry and intact. Leg is well aligned. Calf is soft and supple. He is neurologically intact. ASSESSMENT: A 59-year-old gentleman postoperative day #2 from a left knee replacement, doing well. Pain is controlled. PLAN: 1. DVT prophylaxis including thigh-high TEDs, SCDs and aspirin twice a day. 2. PT/OT. Weight bear as tolerated. Left total knee protocol. 3. Pain control, doing well with current pain regimen. 4. Disposition: Plan to discharge to home with some home health later today.
--- NOTE | 2019-06-15 14:57 | Discharge Summary ---
ADMITTING PHYSICIAN AND SURGEON: Julián Whitlock MD ADMITTING DIAGNOSIS: Left knee degenerative joint disease. SURGERY PERFORMED: Left total knee arthroplasty. SECONDARY DIAGNOSES: Include atrial fibrillation, anxiety, mild obesity, low back pain. CONSULTS: None obtained. HISTORY AND PHYSICAL EXAMINATION: Well documented in the patient's chart. HOSPITAL COURSE: The patient was admitted on 06/10/2019, underwent total knee arthroplasty, tolerated the procedure well. There were no complications. He was transferred to the PACU postoperatively and later to the orthopedic floor for further care. He was given Ancef for antibiotic prophylaxis, RADHA stockings, SCDs and aspirin for DVT prophylaxis. Hemoglobin, hematocrit and vital signs were monitored during his hospital stay and remained stable, did not require any blood transfusions. There were no complications. By postoperative day 2, he was tolerating a regular diet, pain was controlled with oral pain medicine. He was participating in physical therapy. Postop day 2, he was discharged home, set up with home health services. He was given printed discharge instructions including new prescriptions for extra-strength Tylenol, aspirin and oxycodone. Continue his home medication. Continue physical therapy, weightbearing as tolerated, RADHA stockings. Follow up approximately 2 weeks postop or sooner if there are any problems or concerns.
== END 2019-06-12 10:10 | disposition home health service (06) | DRG 470 ==
LOC: ASU 06:21 → 3E 10:27